=== PATIENT | female | born 1970 | race Caucasian/White ===

== ENCOUNTER 2019-07-02 11:36 | Emergency (ER) | payer BC ==
[2019-07-02 14:36] VITALS: BP 116/75
--- NOTE | 2019-07-02 14:49 | ED ---
Head Injury - HPI Summary HPI Summary: This patient is a 49-year-old female presenting to the ED with a head injury and laceration. Patient states she was playing basketball when she fell backwards, landing on her buttocks and then hitting the back of her head. She denies any LOC. Denies any headache, visual changes, memory loss, confusion. She states after arrival to the ED, she began to have a headache at at 2/10. She continues to deny any nausea or vomiting. Denies any use of blood thinners. Patient has not taken any Tylenol or ibuprofen prior to arrival. Bleeding is well controlled now on arrival. - History Of Current Complaint Chief Complaint: EDHeadInjury Stated Complaint: HEAD INJURY PER PT Time Seen by Provider: 07/02/19 12:17 Hx Obtained From: Patient Mechanism Of Injury: Blunt Trauma Onset/Duration: Started Minutes Ago Onset of Pain: Immediate Severity Currently: None Severity Initially: Mild Pain Intensity: 2 Pain Scale Used: 0-10 Numeric Location of Head Injury: Occipital Location: Discrete At: - posterior scalp Alleviating Factor(s): Rest Associated Signs And Symptoms: Negative - Risk Factors SDH Risk Factor: Negative - Allergies/Home Medications Allergies/Adverse Reactions: Allergies Allergy/AdvReac Type Severity Reaction Status Date / Time No Known Allergies Allergy Verified 07/02/19 11:45 Home Medications: Home Medications NK [No Home Medications Reported] 07/02/19 [History Confirmed 07/02/19] PMH/Surg Hx/FS Hx/Imm Hx Previously Healthy: Yes Endocrine/Hematology History: Denies: Hx Diabetes Cardiovascular History: Denies: Hx Hypertension, Hx Pacemaker/ICD Respiratory History: Denies: Hx Asthma History: Denies: Hx Renal Disease - STONES ONLY Sensory History: Denies: Hx Hearing Aid Psychiatric History: Denies: Hx Panic Disorder - Cancer History Hx Chemotherapy: No Hx Radiation Therapy: No - Surgical History Surgery Procedure, Year, and Place: D&C - Immunization History Hx Pertussis Vaccination: No Immunizations Up to Date: Yes Infectious Disease History: No Infectious Disease History: Denies: Traveled Outside the [place] in Last 30 Days - Social History Occupation: Employed Full-time Lives: With Family Alcohol Use: Occasionally Hx Substance Use: No Substance Use Type: Reports: None Hx Tobacco Use: No Smoking Status (MU): Never Smoked Tobacco Review of Systems Constitutional: Negative Negative: Fever, Chills, Fatigue, Skin Diaphoresis Negative: Palpitations, Chest Pain Negative: Shortness Of Breath, Cough Genitourinary: Negative Positive: no symptoms reported, see HPI Negative: Arthralgia, Myalgia Positive: Other - 2 small puncture wounds to the posterior scalp Positive: Headache All Other Systems Reviewed And Are Negative: Yes Physical Exam Triage Information Reviewed: Yes Vital Signs On Initial Exam: Initial Vitals Temp Pulse Resp BP Pulse Ox 97.9 F 94 16 125/77 97 07/02/19 11:41 07/02/19 11:41 07/02/19 11:41 07/02/19 11:41 07/02/19 11:41 Vital Signs Reviewed: Yes Appearance: Positive: Well-Appearing, Well-Nourished Skin: Positive: Skin Color Reflects Adequate Perfusion, Other - 2 small along wounds to the posterior scalp Head/Face: Positive: Normal Head/Face Inspection Eyes: Positive: EOMI, MINAL, Conjunctiva Clear Neck: Positive: Nontender, No Lymphadenopathy Respiratory/Lung Sounds: Positive: Clear to Auscultation, Breath Sounds Present Cardiovascular: Positive: RRR, Pulses are Symmetrical in both Upper and Lower Extremities Musculoskeletal: Positive: Normal, Strength/ROM Intact Neurological: Positive: Alert, Oriented to Person Place, Time, Speech Normal Psychiatric: Positive: Affect/Mood Appropriate AVPU Assessment: Alert Diagnostics - Vital Signs Vital Signs Temp Pulse Resp BP Pulse Ox 07/02/19 14:35 99 F 75 16 116/75 99 07/02/19 11:41 97.9 F 94 16 125/77 97 - Laboratory Lab Statement: Any lab studies that have been ordered have been reviewed, and results considered in the medical decision making process. Head Injury Course/Dx Course Of Treatment: During his course of treatment, the patient is evaluated for a head laceration and head injury. EOMI/PERRLA. No memory loss, visual changes or disturbances. Patient acting appropriately per friend. CT brain obtained due to the severity of the head injury. Laceration cleansed thoroughly which reveals 2 small puncture wounds to the posterior scalp. Bleeding is well-controlled. CT brain reveals no acute intracranial abnormalities from trauma. Discussed concussive like symptoms with patient. She will brain rest at this time and will return to work continuing if she does not have any concussive like symptoms. She understands to f/u for worsneing symptoms. - Diagnoses Differential Diagnosis/HQI/PQRI: Concussion Without LOC, Contusion Provider Diagnoses: Puncture wound of head, Head injury Discharge ED - Sign-Out/Discharge Documenting (check all that apply): Patient Departure Patient Received Moderate/Deep Sedation with Procedure: No - Discharge Plan Condition: Stable Disposition: HOME Patient Education Materials: Laceration (ED), Head Injury (ED) Referrals: Zachariah Mackenzie MD [Primary Care Provider] - Additional Instructions: Keep the towel over your pillow case tonight You can wash your hair when you get home do this gently If the area continues to bleed, apply pressure - Billing Disposition and Condition Condition: STABLE Disposition: Home
== END 2019-07-02 14:35 | disposition home or self-care (01) ==
LOC: ED 11:36
DX: S01.93XA Puncture wound without foreign body of unspecified part of head, initial encounter (principal); W19.XXXA Unspecified fall, initial encounter; Y93.67 Activity, basketball; Y92.9 Unspecified place or not applicable
CPT/HCPCS: 70450; 99282